=== PATIENT | male | born 1940 | race Caucasian/White ===

== ENCOUNTER → 2017-03-09 | Outpatient (CLI) | payer OTHER | LOC: CIMAGING 14:16 | PROVIDERS: ATTEND Family Medicine | DX: M25.531 Pain in right wrist (principal); M79.641 Pain in right hand; M19.041 Primary osteoarthritis, right hand; M19.031 Primary osteoarthritis, right wrist; I70.90 Unspecified atherosclerosis | CPT/HCPCS: 73110-PO; 73130-PO ==

== ENCOUNTER → 2017-06-25 | Outpatient (CLI) | payer OTHER | LOC: FIMAGING 10:47 | PROVIDERS: ATTEND Family Medicine | DX: J43.9 Emphysema, unspecified (principal); I25.10 Atherosclerotic heart disease of native coronary artery without angina pectoris; I70.0 Atherosclerosis of aorta; R63.4 Abnormal weight loss; F17.200 Nicotine dependence, unspecified, uncomplicated; Z95.0 Presence of cardiac pacemaker ==

== ENCOUNTER → 2017-11-13 | Outpatient (CLI) | payer OTHER ==
[~2017-11-13] MED LIST: IOPAMIDOL (ISOVUE-300) 100 ML BTL ONE
== END ==
LOC: FIMAGING 11:59
PROVIDERS: ATTEND Family Medicine
DX: N20.0 Calculus of kidney (principal); N28.1 Cyst of kidney, acquired; K76.89 Other specified diseases of liver; J43.8 Other emphysema
CPT/HCPCS: 74177; Q9967

== ENCOUNTER 2018-08-06 07:54 | Day surgery (SDC) | payer OTHER ==
[~2018-08-06 07:54] MED LIST changes: -IOPAMIDOL (ISOVUE-300) 100 ML BTL ONE; +LIDOCAINE 2% 100 MG/5 ML SYR ONE; +MIDAZOLAM 2 MG/2 ML VIAL ONE; +PROPOFOL/EMULSION 500 MG/50 ML BOTTLE IV ONE; +fentaNYL 100 MCG/2 ML INJ ONE
[2018-08-06] MEDS ORDERED: LR 1,000 ML IV ONE (08:25)
[2018-08-06] MEDS ORDERED: PROPOFOL/EMULSION 500 MG/50 ML BOTTLE IV ONE (08:35)
--- NOTE | 2018-08-06 08:40 | PDGENHP ---
History and Physical - Chief Complaint weight loss, hx of polyps - History of Present Illness pleasant, elderly male with hx of colon polyps and recent weight loss. has CAD and COPD on PM O2. History Information - Allergies/Home Medication List Allergies/Adverse Reactions: No Known Allergies Allergy (Verified 07/04/14 16:36) Home Medications: LORazepam [Ativan (*)] 0.5 mg PO TID PRN 07/04/14 [Last Taken Unknown] Cyclobenzaprine [Flexeril 10 MG (*)] 10 mg PO HS PRN 09/09/16 [Last Taken Unknown] Levothyroxine [Synthroid 137 mcg (*)] 137 mcg PO DAILY06 09/09/16 [Last Taken Unknown] Breo Ellipta 100-25 Mcg INH 08/04/18 [Last Taken Unknown] Coreg 08/04/18 [Last Taken Unknown] English 5/325 (*) 08/04/18 [Last Taken Unknown] Proair Hfa 08/04/18 [Last Taken Unknown] I have personally reviewed and updated: family history, medical history, social history, surgical history - Past Medical History coronary artery disease, COPD - Family History Negative for: cancer - Social History Smoking Status: Heavy smoker Alcohol Use: Rarely Drug Use: None Review of Systems Review of Systems: ROS: 10pt was reviewed & negative except for what was stated in HPI & below Physical Exam Physical Exam: Constitutional: no apparent distress Eyes: PERRL Ears, Nose, Mouth, Throat: moist mucous membranes Respiratory: no respiratory distress Gastrointestinal: normoactive bowel sounds Skin: warm Musculoskeletal: full muscle strength Neurologic: AAOx3 Psychiatric: interacting appropriately Assessment & Plan Assessment: weight loss hx of polyps Plan: 1. colonoscopy
--- NOTE | 2018-08-06 08:42 | PDANEPAE ---
ANE History of Present Illness weight loss here for colonoscopy ANE Past Medical History - Cardiovascular History Hx Hypertension: Yes Hx Arrhythmias: Yes Hx Chest Pain: No Hx Coronary Artery / Peripheral Vascular Disease: Yes Hx CHF / Valvular Disease: No Hx Palpitations: No Cardiovascular History Comment: PACEMAKER. svt. cad. hyperlipidemia. pig valve- aortic valve replacement 2004 - Pulmonary History Hx COPD: Yes Hx Asthma/Reactive Airway Disease: No Hx Recent Upper Respiratory Infection: Yes Hx Oxygen in Use at Home: No O2 in Use at Home (L/minute): 2-3 Hx Sleep Apnea: Yes Sleep Apnea Screening Result - Last Documented: Positive Pulmonary History Comment: ruperto positive. USES HS OXYGEN - Neurologic History Hx Cerebrovascular Accident: No Hx Seizures: No Hx Dementia: No - Endocrine History Hx Diabetes: No - Renal History Hx Renal Disorders: Yes Renal History Comment: NOCTURIA. UA FREQUENCY - Liver History Hx Hepatic Disorders: No - Neurological & Psychiatric Hx Hx Neurological and Psychiatric Disorders: No - Cancer History Hx Cancer: Yes Cancer History Comment: SKIN - Congenital Disorder History Hx Congenital Disorders: No - GI History Hx Gastrointestinal Disorders: No Gastrointestinal History Comment: HX OF POLYPS - Other Health History Other Health History: INFLAMMATORY ARTHRITIS - HANDS. CHRONIC ANEMIA. UPPER DENTURES. BRUISES EASILY - Chronic Pain History Chronic Pain: Yes (BACK,SHLDRS,HANDS,KNEE'S) - Surgical History Prior Surgeries: DAVID CATARACT. pacemaker/ icd placed 01/24/2003. aortic valve replacement- pig valve 2004. pacer pocket revision with noble 04/17/15. 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 Date Pacemaker Last Checked: 11/14/17 [facility] Patient History - Allergies Allergies/Adverse Reactions: No Known Allergies Allergy (Verified 07/04/14 16:36) - Home Medications Home Medications: LORazepam [Ativan (*)] 0.5 mg PO TID PRN 07/04/14 [Last Taken Unknown] Cyclobenzaprine [Flexeril 10 MG (*)] 10 mg PO HS PRN 09/09/16 [Last Taken Unknown] Levothyroxine [Synthroid 137 mcg (*)] 137 mcg PO DAILY06 09/09/16 [Last Taken Unknown] Breo Ellipta 100-25 Mcg INH 08/04/18 [Last Taken Unknown] Coreg 08/04/18 [Last Taken Unknown] Neche 5/325 (*) 08/04/18 [Last Taken Unknown] Proair Hfa 08/04/18 [Last Taken Unknown] - NPO status NPO Status: no food or drink >8 hours - Anes Hx Anes Hx: no prior problems - Smoking Hx Smoking Status: Heavy smoker - Alcohol Use Alcohol Use: Rarely - Family Anes Hx Family Anes Hx: none Family Hx Anesthesia Complications: none ANE Labs/Vital Signs - Vital Signs Vital Signs: reviewed preoperatively; see RN documention for details Height: 172.72 cm Weight: 62.596 kg ANE Physical Exam - Airway Neck exam: FROM Mallampati Score: Class 2 Mouth exam: avalos - Pulmonary Pulmonary: no respiratory distress, expiratory wheeze - Cardiovascular Cardiovascular: regular rate and rhythym, no murmur, rub, or gallop - ASA Status ASA Status: III ANE Anesthesia Plan Anesthesia Plan: GA with mask Total IV Anesthesia: Yes
[2018-08-06] MEDS ORDERED: NALOXONE HCL 0.4 MG/ML INJ IVP PRN (08:51)
--- NOTE | 2018-08-06 09:23 | POSTANESTH ---
Post Anesthetic Evaluation Cardiovascular Status: Normal, Stable, Similar to Pre-Op Cond Respiratory Status: Normal, Stable, Similar to Pre-op Cond. Level of Consciousness/Mental Status: Can Participate in Eval, Alert and Oriented Pain Control: Adequate, Prn Tx Ordered Nausea/Vomiting Control: Adequate, Prn Tx Ordered Complications Possibly Related to Anesthesia: None Noted
--- NOTE | 2018-08-06 09:25 | GIREPORT ---
[facility] - Endoscopy Department Patient Name: Shine Mitchell Procedure Date: 08/06/2018 8:41 AM Patient Type: Outpatient Attending MD/ ER Physician: Lilia Manzo MD Procedure: Colonoscopy Indications: High risk colon cancer surveillance: Personal history of colonic polyps Providers: Lilia Manzo MD Medicines: Sedation Required Anesthesia Staff Assistance Complications: No immediate complications. Description of Procedure: After obtaining informed consent, the scope was passed under direct vis ion. Throughout the procedure, the patient's blood pressure, pulse, and oxyg en saturations were monitored continuously. The Colonoscope with irrigatio n channel was introduced through the anus and advanced to the cecum, identified by appendiceal orifice and ileocecal valve. The colonoscopy was performed without difficulty. The patient tolerated the procedure well. The quality of the bowel preparation was good. The ileocecal valve, appendi ceal orifice, and rectum were photographed. Findings: A 6 mm polyp was found in the ascending colon. The polyp was sessile. T he polyp was removed with a cold biopsy forceps. Resection and retrieval w ere complete. A 7 mm polyp was found in the ascending colon. The polyp was sessile. T he polyp was removed with a cold snare. Resection and retrieval were compl ete. A 5 mm polyp was found in the transverse colon. The polyp was sessile. The polyp was removed with a cold biopsy forceps. Resection and retrieval w ere complete. A 6 mm polyp was found in the sigmoid colon. The polyp was sessile. The polyp was removed with a cold biopsy forceps. Resection and retrieval w ere complete. A 8 mm polyp was found in the sigmoid colon. The polyp was sessile. The polyp was removed with a hot snare. Resection and retrieval were comple te. The exam was otherwise without abnormality. Estimated Blood Loss: Estimated blood loss: none. Post Op Diagnosis: - One 6 mm polyp in the ascending colon, removed with a cold biopsy for ceps. Resected and retrieved. - One 7 mm polyp in the ascending colon, removed with a cold snare. Res ected and retrieved. - One 5 mm polyp in the transverse colon, removed with a cold biopsy forceps. Resected and retrieved. - One 6 mm polyp in the sigmoid colon, removed with a cold biopsy force ps. Resected and retrieved. - One 8 mm polyp in the sigmoid colon, removed with a hot snare. Resect ed and retrieved. - The examination was otherwise normal. Recommendation: - Written discharge instructions were provided to the patient. - The signs and symptoms of potential delayed complications were discus sed with the patient. - Patient has a contact number available for emergencies. - Return to normal activities tomorrow. - Resume previous diet. - Continue present medications. - Await pathology results. - Repeat colonoscopy for surveillance based on pathology results. Attending Participation: I personally performed the entire procedure. Lilia Manzo MD Lilia Manzo MD 08/06/2018 9:24:51 AM This report has been signed electronicallyLilia Manzo MD Number of Addenda: 0 Note Initiated On: 08/06/2018 8:41 AM Total Procedure Duration Time 0 hours 28 minutes 18 seconds [email or web address]
[2018-08-06 10:49] VITALS: BP 120/72
== END 2018-08-06 11:00 | disposition home or self-care (01) ==
LOC: FSGY 07:54
PROVIDERS: ATTEND Internal Medicine Gastroenterology
DX: Z86.010 Personal history of colon polyps (principal); D12.2 Benign neoplasm of ascending colon; D12.3 Benign neoplasm of transverse colon; R63.4 Abnormal weight loss; I25.10 Atherosclerotic heart disease of native coronary artery without angina pectoris; J44.9 Chronic obstructive pulmonary disease, unspecified
CPT/HCPCS: J2001; J2250; J2704; J3010